=== PATIENT | male | born 2000 | race American Indian/Alaskan Native ===

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

== ENCOUNTER 2021-09-14 23:17 | Emergency (ER) | payer SELFPAY ==
[2021-09-15] MEDS ORDERED: IBUPROFEN 600 MG TAB PO ONE (00:34)
[2021-09-15] MEDS ORDERED: ACETAMINOPHEN 500 MG TAB PO ONE (00:34)
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
[2021-09-15 01:00] VITALS: BP 146/83
== END 2021-09-15 05:55 | disposition home or self-care (01) ==
LOC: ED 23:17
DX: S46.912A Strain of unspecified muscle, fascia and tendon at shoulder and upper arm level, left arm, initial encounter (principal); M62.830 Muscle spasm of back; M54.50 Low back pain, unspecified; Z79.899 Other long term (current) drug therapy; V87.7XXA Person injured in collision between other specified motor vehicles (traffic), initial encounter; Y93.89 Activity, other specified; Y92.488 Other paved roadways as the place of occurrence of the external cause; Y99.9 Unspecified external cause status
CPT/HCPCS: 99283